=== PATIENT | female | born 1950 | race Caucasian/White ===

== ENCOUNTER 2016-07-15 08:51 | Outpatient (RCR) | payer MEDICARE | END 2016-08-11 | LOC: M ST 08:51 | PROVIDERS: ATTEND Otolaryngology | DX: Z51.89 Encounter for other specified aftercare (principal); R49.0 Dysphonia | CPT/HCPCS: 92524; G9171; G9172; G9173 ==

== ENCOUNTER → 2016-08-24 | Outpatient (CLI) | payer MEDICARE ==
--- NOTE | 2016-08-24 08:44 | REPMRS ---
Patient History The patient states she has not had a clinical breast exam in over a year. Patient is postmenopausal and is nulliparous. No known family history of cancer. Benign core biopsy of the right breast. Taking estrogen for 25 years. Digital Woman Screen Mammo: August 24, 2016 - Exam #: [id number] Bilateral CC and MLO view(s) were taken. Technologist: Caridad Bundy, Technologist Prior study comparison: July 29, 2015, digital woman screen mammo performed at [facility]. June 26, 2014, bilateral bilat screen digital mammo, performed at [facility] ([facility] FINDINGS: The breast tissue is heterogeneously dense. This may lower the sensitivity of mammography. There has been no change in the appearance of the mammogram from the prior studies. There is a moderate amount of residual fibroglandular tissue which is fairly symmetric. There is no interval development of dominant mass, areas of architectural distortion, or clustered microcalcification typical of malignancy. ASSESSMENT: BI-RADS/ACR category 1 mammogram. Negative. Recommendation Routine screening mammogram in 1 year (for women over age 40). This mammogram was interpreted with the aid of an FDA-approved computer-aided dectection system. Electronically Signed By: Michel Brannon MD 08/24/16 0844
== END ==
LOC: M WHC 07:54
PROVIDERS: ATTEND Family Medicine
DX: R92.2 Inconclusive mammogram (principal); Z78.0 Asymptomatic menopausal state; Z92.0 Personal history of contraception

== ENCOUNTER → 2017-10-28 | Outpatient (CLI) | payer MEDICARE | LOC: M WHC 07:23 | DX: Z12.31 Encounter for screening mammogram for malignant neoplasm of breast (principal); Z78.0 Asymptomatic menopausal state; Z98.890 Other specified postprocedural states; Z79.890 Hormone replacement therapy | CPT/HCPCS: 77067 ==

== ENCOUNTER → 2018-11-18 | Outpatient (CLI) | payer MEDICARE ==
--- NOTE | 2018-11-18 15:50 | REPMRS ---
Patient History The patient states she has not had a clinical breast exam in over a year. Patient is postmenopausal and is nulliparous. No known family history of cancer. Benign core biopsy of the right breast. Taking estrogen for 27 years. 3D TOMOSYNTHESIS WAS PERFORMED. Digital Woman Screen Mammo: November 18, 2018 - Exam #: [id number] Bilateral CC and MLO view(s) were taken. Technologist: Keara Johnson, Technologist Prior study comparison: October 28, 2017, digital woman screen mammo performed at [facility]. August 24, 2016, digital woman screen mammo performed at [facility]. FINDINGS: The breast tissue is heterogeneously dense. This may lower the sensitivity of mammography. There has been no change in the appearance of the mammogram from the prior studies. There is a moderate amount of residual fibroglandular tissue which is fairly symmetric. There is no interval development of dominant mass, areas of architectural distortion, or clustered microcalcification typical of malignancy. Assessment: BI-RADS/ACR category 1 mammogram. Negative Mammogram. Recommendation Routine screening mammogram in 1 year (for women over age 40). This mammogram was interpreted with the aid of an FDA-approved computer-aided dectection system. Electronically Signed By: Michel Brannon MD 11/18/18 8132
== END ==
LOC: M WHC 14:56
PROVIDERS: ATTEND Family Medicine
DX: Z12.31 Encounter for screening mammogram for malignant neoplasm of breast (principal); Z78.0 Asymptomatic menopausal state; Z79.890 Hormone replacement therapy

== ENCOUNTER 2019-02-09 06:38 | Day surgery (SDC) | payer MEDICARE ==
[~2019-02-09] VITALS: Ht 167.6 cm; Wt 69.9 kg
[~2019-02-09 06:38] MED LIST: BENA25CA4 PO; ESTR3TA PO; KP F1200 PO; LOSA100T50 PO; MAGN400T PO; MULTCAP PO; NEXI40CA PO; NORV2TAB PO; NORV5TAB PO; NS 1,000 ML IV ONE; POTA10808 PO; QC F0.52 PO; TORS20TA2 PO; XANA0.5T PO; [UNRECOGNIZED DRUG - OTHER] PA; tylenol pm PO
[2019-02-09] MEDS ORDERED: LIDOCAINE 2% INJ 100 MG/5 ML SDV (FOR ANES.) As Ordered ONE (07:09)
[2019-02-09] MEDS ORDERED: PROPOFOL 200 MG/20 ML VIAL As Ordered ONE ×2 (07:09→08:28)
--- NOTE | 2019-02-09 08:12 | ROOR ---
Patient Name: Kaylan Powell Procedure Date: 02/09/2019 7:31 AM Date of : 1950 Age: 68 Room: [facility] Gender: Female Note Status: Finalized Procedure: Colonoscopy Indications: Screening for colorectal malignant neoplasm, Last colonoscopy: August 2008 Providers: Jose M Rordíguez MD Referring MD: Siobhan Ellington MD Requesting Provider: Medicines: Monitored Anesthesia Care Complications: No immediate complications. Procedure: Pre-Anesthesia Assessment: - Prior to the procedure, a History and Physical was performed, and patient medications and allergies were reviewed. The patient is competent. The risks and benefits of the procedure and the sedation options and risks were discussed with the patient. All questions were answered and informed consent was obtained. Patient identification and proposed procedure were verified by the physician, the nurse and the anesthesiologist in the procedure room. Mental Status Examination: alert and oriented. CV Examination: regular rate and rhythm. Prophylactic Antibiotics: The patient does not require prophylactic antibiotics. Prior Anticoagulants: The patient has taken no previous anticoagulant or antiplatelet agents. ASA Grade Assessment: II - A patient with mild systemic disease. After reviewing the risks and benefits, the patient was deemed in satisfactory condition to undergo the procedure. The anesthesia plan was to use monitored anesthesia care (MAC). Immediately prior to administration of medications, the patient was re-assessed for adequacy to receive sedatives. The heart rate, respiratory rate, oxygen saturations, blood pressure, adequacy of pulmonary ventilation, and response to care were monitored throughout the procedure. The physical status of the patient was re-assessed after the procedure. The was introduced through the anus and advanced to the terminal ileum. The colonoscopy was performed without difficulty. The colonoscopy was performed without difficulty. The patient tolerated the procedure well. The quality of the bowel preparation was excellent. Findings: The perianal and digital rectal examinations were normal. A single medium-mouthed diverticulum was found in the sigmoid colon. The exam was otherwise without abnormality. The terminal ileum appeared normal. Impression: - Diverticulosis in the sigmoid colon. - The examination was otherwise normal. - No specimens collected. Recommendation: - Discharge patient to home. - Resume previous diet. - Continue present medications. - Repeat colonoscopy in 10 years for screening purposes. Jose M Rodríguez MD Jose M Rodríguez MD 02/09/2019 8:12:37 AM Electronically signed by Jose M Rodríguez MD Number of Addenda: 0 Note Initiated On: 02/09/2019 7:31 AM Estimated Blood Loss: Estimated blood loss: none.
[2019-02-09 08:34] VITALS: BP 161/75
== END 2019-02-09 08:36 | disposition home or self-care (01) ==
LOC: M OPP 06:38
PROVIDERS: ATTEND Surgery
DX: Z12.11 Encounter for screening for malignant neoplasm of colon (principal); K57.30 Diverticulosis of large intestine without perforation or abscess without bleeding; I10 Essential (primary) hypertension; R12 Heartburn; F41.9 Anxiety disorder, unspecified; Z87.891 Personal history of nicotine dependence; Z79.899 Other long term (current) drug therapy; Z88.1 Allergy status to other antibiotic agents; Z88.5 Allergy status to narcotic agent; Z88.6 Allergy status to analgesic agent; Z91.09 Other allergy status, other than to drugs and biological substances

== ENCOUNTER → 2020-02-09 | Outpatient (CLI) | payer MEDICARE ==
[~2020-02-09] MED LIST changes: -MAGN400T PO; +MAGN400T3 PO; -NS 1,000 ML IV ONE
--- NOTE | 2020-03-05 14:01 | REPMRS ---
Patient History The patient states she has not had a clinical breast exam in over a year. Patient is postmenopausal and is nulliparous. No known family history of cancer. Benign core biopsy of the right breast. Taking estrogen for 27 years. Digital Woman Screen Mammo: February 09, 2020 - Exam #: [id number] Bilateral CC and MLO view(s) were taken. Technologist: Juany Ramos, Technologist Prior study comparison: November 18, 2018, bilateral digital woman screen mammo performed at [facility]. October 28, 2017, digital woman screen mammo performed at [facility]. August 24, 2016, digital woman screen mammo performed at [facility]. FINDINGS: There are scattered fibroglandular densities. The [facility] volumetric breast density category is:B. There has been no change in the appearance of the mammogram from the prior studies. There is a mild amount of scattered fibroglandular density which is fairly symmetric. There is no interval development of dominant mass, architectural distortion, or grouped microcalcification suggestive of malignancy. 3-D tomosynthesis shows no additional findings. Report was delayed due to a protracted computer network disruption experienced by this facility. Assessment: BI-RADS/ACR category 1 mammogram. Negative Mammogram. Recommendation Routine screening mammogram of both breasts in 1 year (for women over age 40). This patient's Lifetime Breast Cancer Risk is estimated at 1.5 %. This mammogram was interpreted with the aid of an FDA-approved computer-aided dectection system. Electronically Signed By: Roberto Handy MD 03/05/20 2148
== END ==
LOC: M WHC 10:54
PROVIDERS: ATTEND Physician Assistant Medical
DX: Z12.31 Encounter for screening mammogram for malignant neoplasm of breast (principal)

== ENCOUNTER → 2021-02-13 | Outpatient (CLI) | payer MEDICARE ==
--- NOTE | 2021-02-13 15:31 | REP ---
INDICATION: Z12.31 SCREENING MAMMO. The patient has no specific breast complaints at this time. COMPARISON: Multiple prior mammograms, the most recent 02/09/2020. TECHNIQUE: Bilateral digital CC and MLO views were obtained using 2D and 3D technique. FINDINGS: [facility] B, scattered fibroglandular densities.. In the middle 3rd of the left breast, directly deep to and lateral to the nipple at the 3 o'clock position, there is an oval, circumscribed, isodense mass measuring 11 mm in diameter. No additional abnormal findings are seen in either breast. IMPRESSION: BIRADS/ACR 0: Incomplete, need additional imaging evaluation. This patient's Tyrer-Cuzick lifetime breast cancer risk assessment score is 4.2%. This mammogram was interpreted with the aid of an FDA-approved computer-aided detection system. The patient states she has not had a clinical breast exam in over a year. The patient letter being requested is M0. RECOMMENDATION: Focal compression of the left breast in the CC and MLO orientations, and ultrasound. <Electronically signed by Miles Wilkins > 02/13/21 0725
== END ==
LOC: M WHC 13:32
PROVIDERS: ATTEND Family Medicine
DX: Z12.31 Encounter for screening mammogram for malignant neoplasm of breast (principal); N63.25 Unspecified lump in the left breast, overlapping quadrants

== ENCOUNTER → 2021-03-14 | Outpatient (CLI) | payer MEDICARE ==
--- NOTE | 2021-03-14 11:06 | REP ---
INDICATION: LEFT BREAST ADD VIEWS. COMPARISON: Comparison mammography February 13, 2021, November 18, 2018, and February 09, 2020. TECHNIQUE: Magnified focal spot-compression CC, MLO, and true mediolateral views are acquired. 3D tomography is deployed in the mediolateral projection. Targeted left breast sonography is carried out This mammogram was interpreted with the aid of an FDA-approved computer-aided detection system. FINDINGS: Diagnostic mammographic images of the left breast failed to identify a dominant density in the upper outer quadrant. Breast parenchyma shows scattered fibroglandular elements. These elements are felt to be unchanged on mammography which when compared with the prior study from 2018 and 2019. 3D tomography shows no dominant density. The Vol[facility] volumetric breast density pattern is b. Targeted ultrasound: Targeted left breast sonography is performed through the upper outer quadrant, 12:00 to 3:00. Heterogeneous fibroglandular background echotexture is seen. No cyst or mass is observed. No suspicious sonographic finding. IMPRESSION: BIRADS/ACR category 1 negative left breast mammographic and sonographic findings. This patient's Tyrer-Cuzick lifetime breast cancer risk assessment score is 4.2%. RECOMMENDATION: Repeat screening mammography recommended 1 year (for women over 40). The patient letter being requested is M1. <Electronically signed by Roberto Handy > 03/14/21 0639
== END ==
LOC: M WHC 08:56
PROVIDERS: ATTEND Family Medicine
DX: R92.2 Inconclusive mammogram (principal)
CPT/HCPCS: 76642; 77065; G0279

== ENCOUNTER → 2022-01-20 | Outpatient (CLI) | payer MEDICARE ==
[~2022-01-20] MED LIST changes: +LOSA100T45 PO; -LOSA100T50 PO; -MAGN400T3 PO; +MAGN400T33 PO
== END ==
LOC: M SOG 07:59
PROVIDERS: ATTEND Orthopaedic Surgery Hand Surgery
DX: M25.532 Pain in left wrist (principal)

== ENCOUNTER → 2022-06-18 | Outpatient (CLI) | payer MEDICARE | LOC: M WHC 14:28 | PROVIDERS: ATTEND Nurse Practitioner Family | DX: Z12.31 Encounter for screening mammogram for malignant neoplasm of breast (principal) ==

== ENCOUNTER → 2023-05-17 | Outpatient (CLI) | payer MEDICARE ==
[~2023-05-17] MED LIST changes: -LOSA100T45 PO; +LOSA100T46 PO
== END ==
LOC: M RAD 14:06
PROVIDERS: ATTEND Nurse Practitioner Family
DX: R05.9 Cough, unspecified (principal); R91.8 Other nonspecific abnormal finding of lung field

== ENCOUNTER → 2023-06-22 | Outpatient (CLI) | payer MEDICARE | LOC: M WHC 14:35 | PROVIDERS: ATTEND Nurse Practitioner Family | DX: Z12.31 Encounter for screening mammogram for malignant neoplasm of breast (principal); Z13.820 Encounter for screening for osteoporosis; Z78.0 Asymptomatic menopausal state ==

== ENCOUNTER → 2023-07-30 | Outpatient (CLI) | payer MEDICARE | LOC: M RAD 11:23 | PROVIDERS: ATTEND Nurse Practitioner Family | DX: M25.561 Pain in right knee (principal); M25.461 Effusion, right knee ==

== ENCOUNTER → 2023-08-11 | Outpatient (CLI) | payer MEDICARE | LOC: M RAD 17:00 | PROVIDERS: ATTEND Nurse Practitioner Family | DX: R05.9 Cough, unspecified (principal) ==

== ENCOUNTER → 2024-01-17 | Outpatient (CLI) | payer MEDICARE | LOC: M EKG 15:03 | PROVIDERS: ATTEND Orthopaedic Surgery | DX: Z01.818 Encounter for other preprocedural examination (principal); M23.241 Derangement of anterior horn of lateral meniscus due to old tear or injury, right knee; R00.1 Bradycardia, unspecified; I45.10 Unspecified right bundle-branch block ==

== ENCOUNTER → 2024-07-11 | Outpatient (CLI) | payer MEDICARE ==
[~2024-07-11] MED LIST changes: -POTA10808 PO; +POTA10809 PO
== END ==
LOC: M WHC 14:26
PROVIDERS: ATTEND Nurse Practitioner Family
DX: Z12.31 Encounter for screening mammogram for malignant neoplasm of breast (principal); Z13.820 Encounter for screening for osteoporosis

== ENCOUNTER → 2025-01-24 | Outpatient (CLI) | payer MEDICARE | LOC: M RAD 14:31 | PROVIDERS: ATTEND Nurse Practitioner Family | DX: M16.11 Unilateral primary osteoarthritis, right hip (principal); M25.551 Pain in right hip ==